=== PATIENT | male | born 1980 | race Caucasian/White ===

== ENCOUNTER 2021-03-31 20:26 | Emergency (ER) | payer MEDICAID, SELFPAY ==
[~2021-03-31] VITALS: Ht 175.3 cm; Wt 90.9 kg
[~2021-03-31 20:26] MED LIST: TNFMISC
[2021-03-31 21:24] LABS: COVID AG,FIA SOURCE NASOPHARYNGEAL
[2021-03-31 21:27] LABS: BASOPHILS % (AUTO) 1.1 % (0.0-2.0); EOSINOPHILS % (AUTO) 2.3 % (1.0-6.0); HEMATOCRIT 41.7 % (41-53); HEMOGLOBIN 13.9 g/dL (13.5-17.5); LYMPHOCYTES # (AUTO) 2.1 K/uL (1.0-4.8); LYMPHOCYTES % (AUTO) 40.5 % (22.0-44.0); MEAN CORPUSCULAR HGB CONC 33.4 G/dL (31.0-37.0); MEAN CORPUSCULAR VOLUME 90 fL (80-100); MONOCYTES # (AUTO) 0.5 K/uL (0.1-1.0); MONOCYTES % (AUTO) 10.1 % (2.0-9.0); NEUTROPHILS # (AUTO) 2.4 K/uL (1.8-7.7); PLATELET COUNT (AUTO) 241 K/uL (150-450); RED BLOOD CELL COUNT(AUTO) 4.64 MIL/uL (4.50-5.90); RED CELL DISTRIBUTION WIDTH 13.2 % (11.5-14.5)
[2021-03-31 21:35] LABS: ANION GAP 4 mmol/L (8-16); CALCIUM, TOTAL 8.7 mg/dL (8.8-10.5); CARBON DIOXIDE 31 mmol/L (22-29); CHLORIDE 105 mmol/L (98-107); CREATININE 0.82 mg/dL (0.60-1.30); GLOMERULAR FILTR. RATE CALC > 60 mL/min (>60); GLUCOSE,RANDOM 64 mg/dL (70-110); POTASSIUM 3.7 mmol/L (3.5-5.1); SODIUM SERUM 140 mmol/L (136-145); UREA NITROGEN, BLOOD 10 mg/dL (7-18)
[2021-03-31 21:41] LABS: ALANINE AMINOTRANSFERASE 41 U/L (12-78); ALBUMIN 3.6 g/dL (3.4-5.0); ALKALINE PHOSPHATASE 61 U/L (46-116); ASPARTATE AMINOTRANSFERASE 26 U/L (15-37); BILIRUBIN,TOTAL 1.3 mg/dL (0.1-1.0); TOTAL PROTEIN, SERUM 6.8 g/dL (6.4-8.2)
[2021-04-01 01:02] VITALS: BP 127/79
== END 2021-04-01 01:30 | disposition home or self-care (01) ==
LOC: EMS 20:29
DX: F19.10 Other psychoactive substance abuse, uncomplicated (principal); R45.851 Suicidal ideations; F17.210 Nicotine dependence, cigarettes, uncomplicated; F12.90 Cannabis use, unspecified, uncomplicated; Z59.0 Homelessness; Z20.822 Contact with and (suspected) exposure to COVID-19
CPT/HCPCS: 36415; 80053; 85025; 87426; 99285; G0480

== ENCOUNTER 2021-06-24 12:00 | Emergency (ER) | payer MEDICAID ==
[~2021-06-24] VITALS: Ht 152.4 cm; Wt 95.5 kg
[2021-06-24 13:31] VITALS: BP 111/58
== END 2021-06-24 14:09 ==
LOC: EMS 12:03
DX: H92.02 Otalgia, left ear (principal); F17.200 Nicotine dependence, unspecified, uncomplicated; F11.90 Opioid use, unspecified, uncomplicated; F12.90 Cannabis use, unspecified, uncomplicated
CPT/HCPCS: 99283

== ENCOUNTER 2024-06-29 18:11 | Inpatient (IN) | payer MEDICAID ==
[~2024-06-29] VITALS: Ht 167.6 cm; Wt 92.7 kg
[2024-06-29 19:16] LABS: GLUCOMETER DEV NAME(LOC) POC.BV; POC SARS-COV2 AG, FIA NEGATIVE (NEGATIVE)
[2024-06-30 04:08] VITALS: BP 104/71; PULSE 51; RESP 16; TEMP 97.5; O2SAT 99
[2024-06-30] MEDS ORDERED: ONDANSETRON 4 MG TABLET PO PRN (06:45)
[2024-06-30] MEDS ORDERED: MAGNESIUM HYDROXIDE SUSPENSION 30 ML UDCUP PO PRN (06:45)
[2024-06-30] MEDS ORDERED: GuaiFENesin/D-METHORPHAN [SUGAR-FREE] 200-20MG/10 ML SYRUP UDCUP PO PRN (06:45)
[2024-06-30] MEDS ORDERED: LOPERAMIDE HCL 2 MG CAPSULE PO PRN (06:45)
[2024-06-30] MEDS ORDERED: IBUPROFEN 400 MG TABLET PO PRN (06:45)
[2024-06-30] MEDS ORDERED: PETROLATUM,WHITE 28 GM JELLY TP PRN (06:45)
[2024-06-30] MEDS ORDERED: ACETAMINOPHEN 325 MG TABLET PO PRN (06:45)
[2024-06-30] MEDS ORDERED: CloNIDine HCL 0.1 MG TABLET PO PRN (06:45)
[2024-06-30] MEDS ORDERED: NICOTINE 14 MG/24 HOUR PATCH TD PRN (06:45)
[2024-06-30] MEDS ORDERED: DOCUSATE SODIUM 100 MG CAPSULE PO PRN (06:45)
[2024-06-30] MEDS ORDERED: MAG HYDROX/ALUMINUM HYD/SIMETH ES 30 ML SUSPENSION UDCUP PO PRN (06:45)
[2024-06-30] MEDS ORDERED: ALBUTEROL SULFATE HFA 90 MCG/PUFF 8 GM INHALER IH PRN (06:45)
[2024-06-30 08:31] VITALS: RESP 18
[2024-06-30] MEDS: CEPHALEXIN MONOHYDRATE 500 MG CAPSULE PO SCH (09:26)
[2024-06-30] MEDS: BACITRACIN 28 GM OINTMENT TP SCH (09:29)
[2024-06-30 20:39] VITALS: BP 99/49; PULSE 56; RESP 18; TEMP 97.7; O2SAT 97
[2024-07-01 08:27] VITALS: BP 96/60; PULSE 60; RESP 18; TEMP 97.7; O2SAT 99
[2024-07-01 08:59] LABS: EOSINOPHILS % (AUTO) 2.7 % (1.0-6.0); HEMOGLOBIN 14.5 g/dL (13.5-17.5); LYMPHOCYTES # (AUTO) 1.8 K/uL (1.0-4.8); LYMPHOCYTES % (AUTO) 38.2 % (22.0-44.0); MEAN CORPUSCULAR HEMOGLOBIN 30.9 pg (26.0-34.0); MEAN CORPUSCULAR HGB CONC 33.6 G/dL (31.0-37.0); MEAN CORPUSCULAR VOLUME 92 fL (80-100); MONOCYTES # (AUTO) 0.4 K/uL (0.1-1.0); MONOCYTES % (AUTO) 9.2 % (2.0-9.0); NEUTROPHILS # (AUTO) 2.2 K/uL (1.8-7.7); NEUTROPHILS % (AUTO) 48.9 % (40.0-70.0); PLATELET COUNT (AUTO) 220 K/uL (150-450); RED BLOOD CELL COUNT(AUTO) 4.68 MIL/uL (4.50-5.90); RED CELL DISTRIBUTION WIDTH 13.7 % (11.5-14.5); WHITE BLOOD COUNT (AUTO) 4.6 K/uL (4.5-11.0)
[2024-07-01 09:11] LABS: HEMOGLOBIN A1C 5.6 % (3.8-5.6)
[2024-07-01 09:19] LABS: CHOL/HDL RATIO 3.1 (4.2-7.3)
[2024-07-01] MEDS: HALOPERIDOL 5 MG TABLET PO PRN (17:16)
[2024-07-01] MEDS: LORazepam 2 MG TABLET PO PRN (17:16)
[2024-07-01 20:25] VITALS: BP 105/59; PULSE 64; RESP 16; TEMP 97; O2SAT 97
[2024-07-02 08:19] VITALS: BP 108/64; PULSE 63; RESP 17; TEMP 97.5; O2SAT 99
[2024-07-02] MEDS: QUEtiapine FUMARATE 25 MG TABLET PO SCH (20:15)
[2024-07-02] MEDS: ZOLPIDEM TARTRATE 10 MG TABLET PO PRN (20:15)
[2024-07-02 21:08] VITALS: RESP 18
[2024-07-03 08:26] VITALS: BP 100/46; PULSE 54; RESP 16; TEMP 97.4; O2SAT 96
[2024-07-03] MEDS: FLUoxetine HCL 20 MG CAPSULE PO SCH (08:31)
[2024-07-03 21:59] VITALS: BP 111/66; PULSE 70; RESP 18; TEMP 97.8
[2024-07-04 08:12] VITALS: RESP 18
[2024-07-04] MEDS: SULFAMETHOX/TRIMETH DS 800-160 MG/TABLET PO SCH (19:20)
[2024-07-04 20:19] VITALS: BP 102/61; PULSE 61; RESP 18; TEMP 97.5; O2SAT 96
[2024-07-05 08:31] VITALS: RESP 18
[2024-07-05 20:52] VITALS: BP 117/69; PULSE 83; RESP 18; TEMP 97.3; O2SAT 98
[2024-07-06 19:00] VITALS: RESP 18
[2024-07-06 21:52] VITALS: BP 123/71; PULSE 83; RESP 18; TEMP 97.6
[2024-07-07] MEDS ORDERED: FLUO-177 PO (13:16)
[2024-07-07] MEDS ORDERED: QUET25TA PO (13:17)
[2024-07-07] MEDS ORDERED: CEPH-558 PO (13:20)
[2024-07-07] MEDS ORDERED: SULF1TAB42 PO (13:32)
[2024-07-07 20:45] VITALS: BP 122/86; PULSE 67; RESP 18; TEMP 97.7
[2024-07-08 08:24] VITALS: RESP 16
[2024-07-08] MEDS ORDERED: FLUO-418 PO (12:32)
[2024-07-08] MEDS ORDERED: QUET25TA36 PO (12:32)
== END 2024-07-08 11:55 | DRG 753 ==
LOC: B3A 21:11
PROVIDERS: ADMIT Psychiatry & Neurology Child & Adolescent Psychiatry; ATTEND Psychiatry & Neurology Child & Adolescent Psychiatry
PROC: GZ56ZZZ Individual Psychotherapy, Supportive (ICD-10-PCS; principal; 2024-06-30)
DX: F31.4 Bipolar disorder, current episode depressed, severe, without psychotic features (principal); F10.10 Alcohol abuse, uncomplicated; F41.9 Anxiety disorder, unspecified; Z20.822 Contact with and (suspected) exposure to COVID-19; I10 Essential (primary) hypertension; F19.10 Other psychoactive substance abuse, uncomplicated
CPT/HCPCS: 80061; 83036; 84443; 85025; 36415-L1; 36415-TC; Z7610

== ENCOUNTER 2024-06-29 21:32 | Emergency (ER) | payer MEDICAID, OTHER ==
[~2024-06-29] VITALS: Ht 177.8 cm; Wt 111.4 kg
[2024-06-30 00:49] VITALS: BP 142/88; PULSE 72; RESP 20; TEMP 98.3; O2SAT 100
[2024-06-30 01:28] LABS: COVID AG,FIA SOURCE NASAL SWAB
[2024-06-30 01:33] LABS: BASOPHILS % (AUTO) 1.1 % (0.0-2.0); HEMOGLOBIN 13.9 g/dL (13.5-17.5); LYMPHOCYTES # (AUTO) 2.2 K/uL (1.0-4.8); MEAN CORPUSCULAR HEMOGLOBIN 30.8 pg (26.0-34.0); MEAN CORPUSCULAR HGB CONC 33.9 G/dL (31.0-37.0); MEAN CORPUSCULAR VOLUME 91 fL (80-100); MONOCYTES # (AUTO) 0.6 K/uL (0.1-1.0); MONOCYTES % (AUTO) 10.3 % (2.0-9.0); NEUTROPHILS # (AUTO) 2.8 K/uL (1.8-7.7); NEUTROPHILS % (AUTO) 47.6 % (40.0-70.0); PLATELET COUNT (AUTO) 220 K/uL (150-450); RED BLOOD CELL COUNT(AUTO) 4.53 MIL/uL (4.50-5.90); RED CELL DISTRIBUTION WIDTH 13.8 % (11.5-14.5); WHITE BLOOD COUNT (AUTO) 5.8 K/uL (4.5-11.0)
[2024-06-30 01:36] LABS: APPEARANCE,URINE CLEAR (CLEAR); BILIRUBIN,URINE NEGATIVE (NEGATIVE); COLOR,URINE YELLOW (YELLOW); GLUCOSE, URINE (UA) NEGATIVE (NEGATIVE); KETONES,URINE NEGATIVE (NEGATIVE); LEUKOCYTE ESTERASE ,URINE NEGATIVE (NEGATIVE); NITRATE,URINE NEGATIVE (NEGATIVE); OCCULT BLOOD,URINE NEGATIVE (NEGATIVE); PROTEIN,URINE 30-70 mg/dL (NEGATIVE); SPECIFIC GRAVITIY, URINE 1.037 (1.003-1.030)
[2024-06-30] MEDS: CEPHALEXIN MONOHYDRATE 500 MG CAPSULE PO ONE (01:37)
[2024-06-30] MEDS: TraMADol HCL 50 MG TABLET PO ONE (01:37)
[2024-06-30 01:39] LABS: SARS-COV2 (COVID) ANTIGEN,FIA Negative (Negative)
[2024-06-30 01:40] LABS: ANION GAP 9 mmol/L (8-16); CALCIUM, TOTAL 8.8 mg/dL (8.8-10.5); CARBON DIOXIDE 27 mmol/L (22-29); CHLORIDE 103 mmol/L (98-107); CREATININE 1.01 mg/dL (0.60-1.30); GLOMERULAR FILTR. RATE CALC > 60 mL/min (>60); GLUCOSE,RANDOM 124 mg/dL (70-110); POTASSIUM 3.3 mmol/L (3.5-5.1); SODIUM SERUM 139 mmol/L (136-145); UREA NITROGEN, BLOOD 16 mg/dL (7-18)
[2024-06-30 01:56] LABS: ALCOHOL, URINE DRUG SCREEN NEGATIVE (NEGATIVE); AMPHET/METH SCREEN,URINE POSITIVE (NEGATIVE); BARBITURATE SCREEN, URINE NEGATIVE (NEGATIVE); BENZODIAZEPINES SCREEN,URINE NEGATIVE (NEGATIVE); CANNABINOID SCREEN,URINE NEGATIVE (NEGATIVE); COCAINE SCREEN,URINE POSITIVE (NEGATIVE); METHADONE SCREEN, URINE NEGATIVE (NEGATIVE); OPIATE SCREEN,URINE NEGATIVE (NEGATIVE); PHENCYCLIDINE SCREEN,URINE NEGATIVE (NEGATIVE)
[2024-06-30] MEDS ORDERED: POTASSIUM CHLORIDE 20 MEQ ER TABLET ONE (02:23)
[2024-06-30] MEDS: POTASSIUM CHLORIDE 20 MEQ ER TABLET PO ONE (02:25)
== END 2024-06-30 02:54 | disposition admitted as inpatient to this hospital (09) ==
LOC: EMS 21:32
DX: Z48.00 Encounter for change or removal of nonsurgical wound dressing (principal); F12.90 Cannabis use, unspecified, uncomplicated; F15.10 Other stimulant abuse, uncomplicated; Z20.822 Contact with and (suspected) exposure to COVID-19
CPT/HCPCS: 80048; 80307; 81003; 85025; 99285

== ENCOUNTER 2024-07-04 16:24 | Emergency (ER) | payer OTHER ==
[~2024-07-04] VITALS: Ht 167.6 cm; Wt 90.9 kg
[2024-07-04 18:01] VITALS: BP 116/64; PULSE 64; RESP 16; TEMP 98.4; O2SAT 100
[2024-07-04] MEDS: SULFAMETHOX/TRIMETH DS 800-160 MG/TABLET PO ONE (18:02)
[2024-07-04] MEDS: CEPHALEXIN MONOHYDRATE 500 MG CAPSULE PO ONE (18:02)
[2024-07-04] MEDS: BACITRACIN 0.9 GM PACKET OINTMENT TP ONE (18:02)
== END 2024-07-04 21:24 ==
LOC: EMS 16:24
DX: Z48.00 Encounter for change or removal of nonsurgical wound dressing (principal); F12.90 Cannabis use, unspecified, uncomplicated; F15.10 Other stimulant abuse, uncomplicated
CPT/HCPCS: 99284; 99285; Z7502; Z7610